=== PATIENT | male | born 1975 | race Caucasian/White ===

== ENCOUNTER 2017-01-27 12:22 | Emergency (ER) | payer OTHER ==
[2017-01-27] MEDS ORDERED: Ketorolac INJ* 30 MG/ML 1 ML VIAL IV ONE (13:04)
[2017-01-27] MEDS ORDERED: NS 0.9% 1000 ML* 1,000 ML IV ONE (13:04)
[2017-01-27 13:20] LABS: Hematocrit 40 % (42-52); Hemoglobin 13.3 g/dl (14.0-18.0); Mean Corpuscular HGB Conc 33 g/dl (31-36); Mean Corpuscular Hemoglobin 29 pg (27-31); Mean Corpuscular Volume 87 fL (80-94); Mean Platelet Volume 8 um3 (7.4-10.4); Red Blood Count 4.62 10^6/ul (4.0-5.4); Red Cell Distribution Width 14 % (10.5-15); White Blood Count 8.1 10^3/ul (3.5-10.8)
[2017-01-27 13:32] LABS: Albumin 3.9 g/dL (3.2-5.2); BUN/Creatinine Ratio 15.6 (8-20); C Reactive Protein 27.43 mg/L (< 5.00); Calcium 9.2 mg/dL (8.6-10.3); EGFR African American 79.3 (>60); EGFR Non-African American 61.6 (>60); Globulin 3.3 g/dL (2-4); Potassium 4.1 mmol/L (3.5-5.0); Total Bilirubin 0.6 mg/dL (0.2-1.0); Total Protein 7.2 g/dL (6.4-8.9)
--- NOTE | 2017-01-27 13:51 | RAD ---
Indication: Left testicular pain. Real-time sonography of the scrotum was performed. The right testicle measures 4.5 x 2.2 x 3.5 cm. No intratesticular masses are noted. Normal flow is noted in the right testis. No intratesticular masses are noted. The epididymis measures 12 x 8 mm. Small hydrocele is noted. The left testis measures 4.4 x 2.5 x 3.1 cm. Normal flow is noted in the left testis. Epididymis measures 11 x 12 mm. Small hydrocele is noted. No intratesticular masses are noted. Provocative scanning including upright standing with Valsalva demonstrates no evidence of inguinal hernia. IMPRESSION: Unremarkable scrotal ultrasound.
[2017-01-27] MEDS ORDERED: Iohexol 300* (CONTRAST) 10 ML SDV IV ONE (16:31)
--- NOTE | 2017-01-27 17:02 | RAD ---
CLINICAL HISTORY: Left lower quadrant and inguinal pain COMPARISON: None TECHNIQUE: Contrast enhanced CT examination of the abdomen and pelvis from the lung bases through the initial tuberosities. The patient received 144 mL Omnipaque 300 intravenously prior to imaging.The patient received oral contrast as well prior to imaging. FINDINGS: VISUALIZED LUNG BASES: The visualized lung bases are grossly clear. There is no pleural effusion. ABDOMEN AND PELVIS: The liver, spleen, pancreas and adrenal glands are grossly normal in appearance. The gallbladder is normal. At the lower pole of the right kidney (image 21) there is a 7 mm low-density focus that cannot be characterized further on this CT examination. Kidneys are normal in appearance without focal mass, calcification or signs of hydronephrosis. Neural contrast has progressed as far as the distal small bowel. In the left hemiabdomen (image 57 on the axial images and 46 of the coronal images) there is an apparent segment of small bowel exhibit bowel wall thickening up to 1 cm in thickness. This does not appear to cause obstruction as contrast has progressed beyond this point. The 5 mm normal-appearing appendix identified in the right lower quadrant (coronal image 62). There is no gross retroperitoneal or mesenteric lymphadenopathy. The pelvic viscera is normal in appearance. The abdominal aorta and iliac arteries are normal in course and diameter. Degenerative changes include multilevel loss of intervertebral disc height involving the lower thoracic and lumbar spine.There are no sinister bone lesions. IMPRESSION: 1. There is at least one segment of small bowel in the left hemiabdomen exhibiting wall thickening up to 9 mm in thickness. This can be seen with inflammatory or infectious etiologies. A neoplastic process is considered less likely but not totally excluded on imaging alone. 2. Additional chronic and degenerative changes noted in the body the report unlikely to be directly related to the patient's current presentation.
[2017-01-27 17:09] LABS: Urine Bilirubin Negative (Negative); Urine Glucose Negative (Negative); Urine Nitrite Negative (Negative)
--- NOTE | 2017-01-27 17:35 | ED ---
Gilda Nam Auryana, scribed for Norris Gomez MD on 01/27/17 at 1402 . Abdominal Pain/Male - HPI Summary HPI Summary: 41 year old male presents with abdominal pain starting last Friday (8 days ago) . He states suprapubic pain down to the base of the penis. He reports that the pain started after sexual intercourse with . He denies any fever, chills, nausea, vomiting, or any discharge. He denies any heavy lifting. No previous episodes - does report being seen at PCP who ordered a US ABD due to belief that it was a hernia - negative. PMHx is significant for knee surgeries but no PMHx relating to current complaint. FHx is significant for DM. SHx is significant for tobacco and alcohol, but no recreational drugs. - History of Current Complaint Chief Complaint: EDAbdPain Stated Complaint: GROIN PAIN Time Seen by Provider: 01/27/17 12:56 Hx Obtained From: Patient Onset/Duration: Gradual Onset, Lasting Days - 8, Still Present Timing: Constant Severity Initially: Mild Severity Currently: Moderate Pain Intensity: 7 Pain Scale Used: 0-10 Numeric Location: Suprapubic Radiates: Yes Radiates to: Other - to the base of the penis Associated Signs And Symptoms: Positive: Negative. Negative: Fever, Chest Pain , Back Pain, Urinary Symptoms, Nausea, Vomiting, Diarrhea, Penile Discharge Similar Episode/Dx As:: SEE HPI - Allergies/Home Medications Allergies/Adverse Reactions: Allergies Allergy/AdvReac Type Severity Reaction Status Date / Time No Known Allergies Allergy Verified 01/27/17 13:15 Home Medications: Home Medications NK [No Home Medications Reported] 01/27/17 [History Confirmed 01/27/17] PMH/Surg Hx/FS Hx/Imm Hx Musculoskeletal History: Reports: Other Musculoskeletal History - knee surgery Infectious Disease History: No Infectious Disease History: Denies: Traveled Outside the [place] in Last 30 Days - Family History Known Family History: Positive: Diabetes - Social History Occupation: Employed Full-time Lives: With Family Alcohol Use: Occasionally Hx Substance Use: No Substance Use Type: Reports: None Hx Tobacco Use: Yes Smoking Status (MU): Current Every Day Smoker Review of Systems Constitutional: Negative Negative: Fever, Chills Eyes: Negative ENT: Negative Cardiovascular: Negative Respiratory: Negative Positive: Abdominal Pain - suprapubic. Negative: Vomiting, Nausea Genitourinary: Negative Musculoskeletal: Negative Skin: Negative Neurological: Negative Psychological: Normal All Other Systems Reviewed And Are Negative: Yes Physical Exam - Summary Physical Exam Summary: VITAL SIGNS: Reviewed. GENERAL: Patient is a well developed and nourished male who is lying comfortable in the stretcher. Patient is not in any acute respiratory distress. HEAD AND FACE: Normocephalic and atraumatic. EYES: PERRLA, EOMI x 2, No injected conjunctiva. EARS: Hearing grossly intact. Ear canals and tympanic membranes are WNL. MOUTH: Oropharynx within normal limits. NECK: Supple, trachea is midline, no adenopathy, no JVD. CHEST: Symmetric, no tenderness at palpation LUNGS: Clear to auscultation bilaterally. No wheezing or crackles. CVS: RRR,, S1 and S2 present, no murmurs or gallops appreciated. ABDOMEN: Soft. No signs of distention. Positive bowel sounds. No rebound no guarding, and no masses palpated. No abdominal bruit or pulsations. Left inguinal tenderness - no lymphadenopathy-good pulses. EXTREMITIES: FROM in all major joints, no edema, no cyanosis or clubbing. NEURO: Alert and oriented x 3. No acute neurological deficits. Speech is normal. SKIN: Dry and warm : Circumcised penis, both testicles are descended. No masses are appreciated. Positive cremasteric reflex. Triage Information Reviewed: Yes Vital Signs On Initial Exam: Initial Vitals Temp Pulse Resp BP Pulse Ox 98.7 F 82 20 151/90 98 01/27/17 12:39 01/27/17 12:39 01/27/17 12:39 01/27/17 12:39 01/27/17 12:39 Vital Signs Reviewed: Yes Diagnostics - Vital Signs Vital Signs Temp Pulse Resp BP Pulse Ox 01/27/17 12:41 98.1 F 82 16 151/90 98 01/27/17 12:39 98.7 F 82 20 151/90 98 - Laboratory Lab Results: Lab Results 01/27/17 01/27/17 01/27/17 Range/Units 13:08 13:08 13:08 WBC 8.1 (3.5-10.8) 10^3/ul RBC 4.62 (4.0-5.4) 10^6/ul Hgb 13.3 L (14.0-18.0) g/dl Hct 40 L (42-52) % MCV 87 (80-94) fL MCH 29 (27-31) pg MCHC 33 (31-36) g/dl RDW 14 (10.5-15) % Plt Count 276 (150-450) 10^3/ul MPV 8 (7.4-10.4) um3 Neut % (Auto) 44.2 (38-83) % Lymph % (Auto) 43.1 (25-47) % Hawkins % (Auto) 10.6 H (1-9) % Eos % (Auto) 1.6 (0-6) % Baso % (Auto) 0.5 (0-2) % Absolute Neuts (auto) 3.6 (1.5-7.7) 10^3/ul Absolute Lymphs (auto) 3.5 (1.0-4.8) 10^3/ul Absolute Monos (auto) 0.9 H (0-0.8) 10^3/ul Absolute Eos (auto) 0.1 (0-0.6) 10^3/ul Absolute Basos (auto) 0 (0-0.2) 10^3/ul Absolute Nucleated RBC 0 10^3/ul Nucleated RBC % 0 Sodium 136 (133-145) mmol/L Potassium 4.1 (3.5-5.0) mmol/L Chloride 103 (101-111) mmol/L Carbon Dioxide 25 (22-32) mmol/L Anion Gap 8 (2-11) mmol/L BUN 20 (6-24) mg/dL Creatinine 1.28 H (0.67-1.17) mg/dL Est GFR ( Amer) 79.3 (>60) Est GFR (Non-Af Amer) 61.6 (>60) BUN/Creatinine Ratio 15.6 (8-20) Glucose 94 (70-100) mg/dL Lactic Acid 0.8 (0.5-2.0) mmol/L Calcium 9.2 (8.6-10.3) mg/dL Total Bilirubin 0.60 (0.2-1.0) mg/dL AST 16 (13-39) U/L ALT 14 (7-52) U/L Alkaline Phosphatase 73 (34-104) U/L C-Reactive Protein 27.43 H (< 5.00) mg/L Total Protein 7.2 (6.4-8.9) g/dL Albumin 3.9 (3.2-5.2) g/dL Globulin 3.3 (2-4) g/dL Albumin/Globulin Ratio 1.2 (1-3) Lipase 14 (11.0-82.0) U/L Urine Color Urine Appearance Urine pH (5-9) Ur Specific [place] (1.010-1.030) Urine Protein (Negative) Urine Ketones (Negative) Urine Blood (Negative) Urine Nitrate (Negative) Urine Bilirubin (Negative) Urine Urobilinogen (Negative) Ur Leukocyte Esterase (Negative) Urine Glucose (Negative) 01/27/17 Range/Units 17:00 WBC (3.5-10.8) 10^3/ul RBC (4.0-5.4) 10^6/ul Hgb (14.0-18.0) g/dl Hct (42-52) % MCV (80-94) fL MCH (27-31) pg MCHC (31-36) g/dl RDW (10.5-15) % Plt Count (150-450) 10^3/ul MPV (7.4-10.4) um3 Neut % (Auto) (38-83) % Lymph % (Auto) (25-47) % Hawkins % (Auto) (1-9) % Eos % (Auto) (0-6) % Baso % (Auto) (0-2) % Absolute Neuts (auto) (1.5-7.7) 10^3/ul Absolute Lymphs (auto) (1.0-4.8) 10^3/ul Absolute Monos (auto) (0-0.8) 10^3/ul Absolute Eos (auto) (0-0.6) 10^3/ul Absolute Basos (auto) (0-0.2) 10^3/ul Absolute Nucleated RBC 10^3/ul Nucleated RBC % Sodium (133-145) mmol/L Potassium (3.5-5.0) mmol/L Chloride (101-111) mmol/L Carbon Dioxide (22-32) mmol/L Anion Gap (2-11) mmol/L BUN (6-24) mg/dL Creatinine (0.67-1.17) mg/dL Est GFR ( Amer) (>60) Est GFR (Non-Af Amer) (>60) BUN/Creatinine Ratio (8-20) Glucose (70-100) mg/dL Lactic Acid (0.5-2.0) mmol/L Calcium (8.6-10.3) mg/dL Total Bilirubin (0.2-1.0) mg/dL AST (13-39) U/L ALT (7-52) U/L Alkaline Phosphatase (34-104) U/L C-Reactive Protein (< 5.00) mg/L Total Protein (6.4-8.9) g/dL Albumin (3.2-5.2) g/dL Globulin (2-4) g/dL Albumin/Globulin Ratio (1-3) Lipase (11.0-82.0) U/L Urine Color Yellow Urine Appearance Clear Urine pH 5.0 (5-9) Ur Specific [place] > 1.060 H (1.010-1.030) Urine Protein Negative (Negative) Urine Ketones Negative (Negative) Urine Blood Negative (Negative) Urine Nitrate Negative (Negative) Urine Bilirubin Negative (Negative) Urine Urobilinogen Negative (Negative) Ur Leukocyte Esterase Negative (Negative) Urine Glucose Negative (Negative) Result Diagrams: 01/27/17 13:08 01/27/17 13:08 Lab Statement: Any lab studies that have been ordered have been reviewed, and results considered in the medical decision making process. - CT ABD/PEL CT Interpretation: Positive (See Comments) - IMPRESSION: 1. There is at least one segment of small bowel in the left hemiabdomen exhibiting wall thickening up to 9 mm in thickness. This can be seen with inflammatory or infectious etiologies. A neoplastic process is considered less likely but not totally excluded on imaging alone. 2. Additional chronic and degenerative changes noted in the body the report unlikely to be directly related to the patient's current presentation. CT Interpretation Completed By: Radiologist - Additional Comments Diagnostic Additional Comments: TESTICULAR US : IMPRESSION: Unremarkable scrotal ultrasound. Re-Evaluation - Re-Evaluation First Eval Re-Evaluation Time: 14:44 - pain improved but still present - will medicate accordingly Second Eval Re-Evaluation Time: 17:27 - discussed results, plan for discharge, treatment and follow up Comment: patient agrees Abdominal Pain Fem Course/Dx - Course Course Of Treatment: 41 year old male presents with abdominal pain starting last Friday (8 days ago). He states suprapubic pain down to the base of the penis. He reports that the pain started after sexual intercourse with . He denies any fever, chills, nausea, vomiting, or any discharge. He denies any heavy lifting. No previous episodes - does report being seen at PCP who ordered a US ABD due to belief that it was a hernia - negative. PMHx is significant for knee surgeries but no PMHx relating to current complaint. FHx is significant for DM. SHx is significant for tobacco and alcohol, but no recreational drugs. Assessment/Plan: test results WNL except slight anemia, creatinine 1.28, CRP 27.4. UA is negative. Testicular is negative for acute pathology. I decided to do a CT ABD/PEL since patient had continued pain even after Toradol administration. CT ABD/PEL: IMPRESSION: 1. There is at least one segment of small bowel in the left hemiabdomen exhibiting wall thickening up to 9 mm in thickness. This can be seen with inflammatory or infectious etiologies. A neoplastic process is considered less likely but not totally excluded on imaging alone. 2. Additional chronic and degenerative changes noted in the body the report unlikely to be directly related to the patient's current presentation. In ED course, patient was given 1 dose of narco, and symptoms slightly improved. CT shows slight thickening in the small bowel therefore I will refer the patient to GI physician for follow up. At this point, the patient has no pain, nausea, vomiting, or diarrhea. Pain was only in the L inguinal area. There are no signs of hernia. Good femoral pulses, and full ROM of the hip, therefore patient will be discharged home with pain medication and follow up with GI. - Diagnoses Differential Diagnosis/HQI/PQRI: Constipation, Diverticulitis Provider Diagnoses: Inguinal pain Discharge - Discharge Plan Condition: Stable Disposition: HOME Patient Education Materials: Testicle Pain (ED), Groin Pain (ED), Acute Abdominal Pain (ED) Referrals: Sumanth Negrete MD [Medical Doctor] - 3 Days The documentation as recorded by the Gilda dennis Auryana accurately reflects the service I personally performed and the decisions made by me, Norris Gomez MD.
[2017-01-27 17:37] VITALS: BP 163/100
== END 2017-01-27 17:39 | disposition home or self-care (01) ==
LOC: EDSEX → ED 12:22
DX: R10.30 Lower abdominal pain, unspecified (principal); F17.200 Nicotine dependence, unspecified, uncomplicated
CPT/HCPCS: 36415; 74177; 76870; 80053; 81003; 83605; 83690; 85025; 86140; 87491; 87591; 96360; 96374; 99283; J1885; Q9967

== ENCOUNTER 2018-01-28 09:22 | Emergency (ER) | payer OTHER ==
[2018-01-28] MEDS ORDERED: NS 0.9% 1000 ML* 2,000 ML IV ONE (10:28)
[2018-01-28 10:41] LABS: ABS Basophils 0 10^3/ul (0-0.2); ABS Eosinophils 0.1 10^3/ul (0-0.6); ABS Lymphocytes 1.9 10^3/ul (1.0-4.8); ABS Monocytes 1.2 10^3/ul (0-0.8); ABS Neutrophils 6.6 10^3/ul (1.5-7.7); ABS Nucleated RBC 0 10^3/ul; Eosinophil % 0.9 % (0-6); Hematocrit 48 % (42-52); Hemoglobin 16.1 g/dl (14.0-18.0); Lymphocyte % 19.8 % (25-47); Mean Corpuscular HGB Conc 34 g/dl (31-36); Mean Corpuscular Hemoglobin 30 pg (27-31); Mean Corpuscular Volume 89 fL (80-94); Mean Platelet Volume 7.6 um3 (7.4-10.4); Nucleated Red Blood Cells % 0; Platelet Count 223 10^3/ul (150-450); Red Blood Count 5.36 10^6/ul (4.0-5.4); Red Cell Distribution Width 14 % (10.5-15); White Blood Count 9.8 10^3/ul (3.5-10.8)
[2018-01-28] MEDS ORDERED: Iohexol 300* (CONTRAST) 10 ML SDV IV ONE (11:15)
--- NOTE | 2018-01-28 11:52 | RAD ---
Indication: Left lower quadrant pain. Contrast: Administered 133.0 ml of OMNIPAQUE 300 mg/ml CT of the abdomen and pelvis was performed after oral and IV contrast administration. Coronal and sagittal reconstructed images were obtained. Comparison is made with previous exam dated January 27, 2017. The lung bases demonstrate no pleural fluid, nodules or masses heart is of normal size without evidence of pericardial effusion. Liver is normal in size. No focal lesions or intrahepatic ductal dilatation is noted. The gallbladder is partially contracted. No calcified gallstones are noted. The spleen is normal in size. The pancreas demonstrates no mass or pancreatic duct dilatation. The common duct is not dilated. No adrenal lesions are noted. The kidneys demonstrate symmetric nephrograms without focal lesions. There is likely a cortical cyst in the lower pole of the right kidney. Aorta and inferior vena cava are grossly unremarkable. No retroperitoneal or pelvic lymphadenopathy is noted. CT of the pelvis demonstrates no retroperitoneal or pelvic lymphadenopathy. There is mucosal thickening of the colon especially in the right colon, transverse colon. There may be some mucosal thickening in the descending colon. Findings are suspicious for colitis. No evidence of perforation is noted. No bowel obstruction is noted. Underlying diverticulosis of the sigmoid colon is noted. IMPRESSION: There is mucosal thickening of the right colon and transverse colon. Findings are suspicious for colitis. In addition underlying diverticulosis of the sigmoid colon is likely present. No definite evidence of diverticulitis is noted.
[2018-01-28] MEDS ORDERED: metroNIDAZOLE TAB* 250 MG PO ONE (12:07)
[2018-01-28] MEDS ORDERED: Ciprofloxacin TAB* 500 MG PO ONE (12:07)
[2018-01-28 12:17] LABS: Urine Appearance Cloudy; Urine Blood 1+ (Negative); Urine Color Amber; Urine Ketones Trace (Negative); Urine Protein 1+(30 mg/dL) (Negative); Urine Specific Gravity 1.027 (1.010-1.030); Urine Urobilinogen Negative (Negative)
[2018-01-28 13:00] VITALS: BP 130/72
--- NOTE | 2018-01-28 17:35 | ED ---
Roscoe Nam Gabriel, scribed for Rudolph Saleh MD on 01/28/18 at 1029 . GI/ HPI - HPI Summary HPI Summary: This patient is a 42 year old M BIBA to [facility] accompanied by his partner with a chief complaint of bright red in his stool for the past two days. The patient rates the pain 5/10 in severity. Patient reports periumbilicalar pain, diarrhea , chills, and intermittent fever. Patient denies vomiting. Pt denies recent travel, drinking untreated water, or eatting raw meat. Children that he lives with are also sick with a stomach bug - History of Current Complaint Chief Complaint: EDGIBleed Time Seen by Provider: 01/28/18 10:17 Stated Complaint: BLOOD STOOL/ABDOMINAL PAIN FOR 2 DAYS Hx Obtained From: Patient Onset/Duration: Started Days Ago - 2, Still Present Timing: Constant Severity: Moderate Current Severity: Moderate Pain Intensity: 5 Location of Pain: Other - periumbilicalar Associated Signs and Symptoms: Positive: Other: - periumbilicalar pain, diarrhea , chills, intermittent fever - Allergy/Home Medications Allergies/Adverse Reactions: Allergies Allergy/AdvReac Type Severity Reaction Status Date / Time No Known Allergies Allergy Verified 01/28/18 09:41 PMH/Surg Hx/FS Hx/Imm Hx Endocrine/Hematology History: Denies: Hx Diabetes Cardiovascular History: Denies: Hx Congestive Heart Failure, Hx Coronary Artery Disease, Hx Hypertension Respiratory History: Denies: Hx Chronic Bronchitis, Hx Chronic Obstructive Pulmonary Disease (COPD ), Hx Cystic Fibrosis History: Denies: Hx Renal Disease Musculoskeletal History: Reports: Other Musculoskeletal History - knee surgery Denies: Hx Congenital Bone Abnormalities Psychiatric History: Denies: Hx Panic Disorder Infectious Disease History: No Infectious Disease History: Denies: Traveled Outside the [place] in Last 30 Days - Family History Known Family History: Positive: Diabetes - Social History Occupation: Employed Full-time Lives: With Family Alcohol Use: Occasionally Alcohol Amount: 2 times a week Hx Substance Use: No Substance Use Type: Reports: None Hx Tobacco Use: Yes Smoking Status (MU): Current Every Day Smoker Review of Systems Positive: Fever, Chills Negative: Erythema Negative: Sore Throat Negative: Chest Pain Negative: Shortness Of Breath, Cough Gastrointestinal: Other - blood in stool Positive: Abdominal Pain. Negative: Vomiting, Diarrhea, Nausea Negative: dysuria, hematuria Negative: Myalgia, Edema Negative: Rash Neurological: Negative - dizziness All Other Systems Reviewed And Are Negative: Yes Physical Exam - Summary Physical Exam Summary: Constitutional: Well-developed, Well-nourished, Alert. (-) Distressed Skin: Warm, Dry HENT: Normocephalic; Atraumatic Eyes: Conjunctiva normal Neck: Musculoskeletal ROM normal neck. (-) JVD, (-) Stridor, (-) Tracheal deviation Cardio: Rhythm regular, rate normal, Heart sounds normal; Intact distal pulses; The pedal pulses are 2+ and symmetric. Radial pulses are 2+ and symmetric. (-) Murmur Pulmonary/Chest wall: Effort normal. (-) Respiratory distress, (-) Wheezes, (-) Rales Abd: Soft, (+) LLQ Tenderness, (-) Distension, (-) Guarding, (-) Rebound Musculoskeletal: (-) Edema Lymph: (-) Cervical adenopathy Neuro: Alert, Oriented x3 Psych: Mood and affect Normal Triage Information Reviewed: Yes Vital Signs On Initial Exam: Initial Vitals Temp Pulse Resp BP Pulse Ox 98.5 F 98 18 147/98 100 01/28/18 09:36 01/28/18 09:36 01/28/18 09:36 01/28/18 09:36 01/28/18 09:36 Vital Signs Reviewed: Yes Diagnostics - Vital Signs Vital Signs Temp Pulse Resp BP Pulse Ox 01/28/18 09:36 98.5 F 98 18 147/98 100 - Laboratory Result Diagrams: 01/28/18 10:33 01/28/18 10:33 Lab Statement: Any lab studies that have been ordered have been reviewed, and results considered in the medical decision making process. - CT CT ABD/Pelvis CT Interpretation Completed By: Radiologist - There is mucosal thickening of the right colon and transverse colon. Findings are suspicious for colitis. In addition underlying diverticulosis of the sigmoid colon is likely present. No definite evidence of diverticulitis is noted. ED physician has reviewed this radiology report. Re-Evaluation - Re-Evaluation First Eval Re-Evaluation Time: 12:13 Change: Unchanged Comment: I discussed CT results with the pt. GIGU Course/Dx - Course Assessment/Plan: This patient is a 42 year old M BIBA to [facility] accompanied by his partner with a chief complaint of bright red in his stool for the past two days. The patient rates the pain 5/10 in severity. Patient reports periumbilicalar pain, diarrhea, chills, and intermittent fever. Patient denies vomiting. Pt denies recent travel, drinking untreated water, or eatting raw meat. Children that he lives with are also sick with a stomach bug. CT ABD/ Pelvis reveals, per radiologist, There is mucosal thickening of the right colon and transverse colon. Findings. are suspicious for colitis. In addition underlying diverticulosis of the sigmoid colon is. likely present. No definite evidence of diverticulitis is noted. Test results with no significant abnormalities except for a CRP of 70. In the ED course the patient was given cipor, flagyl, and IV fluids. The patient understands he needs to follow up with his PCP and will do so. Patient will be discharged with prescription for cipro and flagyl and follow up from PCP and [facility]. Pt discharged awaiting stool culture. The patient is agreeable with this plan. - Diagnoses Provider Diagnoses: Colitis, Bloody diarrhea, Chronic renal insufficiency Discharge - Sign-Out/Discharge Documenting (check all that apply): Discharge/Admit/Transfer - Discharge Plan Condition: Stable Disposition: HOME Prescriptions: Ciprofloxacin TAB* [Cipro 500 MG TAB*] 500 mg PO BID #20 tab metroNIDAZOLE [Flagyl 500 MG TAB] 500 mg PO TID #30 tab Patient Education Materials: Colitis (ED) Referrals: [facility] [Outside] - 2 Days Additional Instructions: Please follow up with your primary care provider in [place] in 2-3 days. RETURN TO THE ER FOR ANY NEW OR WORSENING SYMPTOMS The documentation as recorded by the Roscoe dennis Gabriel accurately reflects the service I personally performed and the decisions made by me, Rudolph Saleh MD.
== END 2018-01-28 13:02 | disposition home or self-care (01) ==
LOC: ED 09:22
DX: K52.9 Noninfective gastroenteritis and colitis, unspecified (principal); K92.1 Melena; N18.9 Chronic kidney disease, unspecified; K57.30 Diverticulosis of large intestine without perforation or abscess without bleeding; F17.200 Nicotine dependence, unspecified, uncomplicated
CPT/HCPCS: 36415; 74177; 80053; 81003; 81015; 83605; 83690; 85025; 86140; 87040; 87086; 96360; 99282; A9270-GY; Q9967

== ENCOUNTER 2018-04-29 08:44 | Emergency (ER) | payer OTHER ==
--- NOTE | 2018-04-29 09:31 | RAD ---
INDICATION: Right fifth finger injury, deformity. TECHNIQUE: 3 views of the right fifth finger were obtained. FINDINGS: There is dislocation of the proximal interphalangeal joint. The middle phalanx is displaced posterior one shaft diameter and overriding the distal aspect of the proximal phalanx. No fracture is appreciated. There is diffuse soft tissue swelling present. IMPRESSION: DISLOCATION OF THE PROXIMAL INTERPHALANGEAL JOINT.
--- NOTE | 2018-04-29 09:34 | ED ---
Lower Extremity - HPI Summary HPI Summary: 42 year old Male presents with right pinky deformity. He states he got caught in something. He denies any previous injury to the area. No previous fracture. No numbness or tingling. Has deformity noted to the PIP. 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 Hasn't taking anything for his pain. - History of Current Complaint Chief Complaint: EDExtremityUpper Stated Complaint: RT HAND INJURY Time Seen by Provider: 04/29/18 08:53 Pain Intensity: 10 - Allergies/Home Medications Allergies/Adverse Reactions: Allergies Allergy/AdvReac Type Severity Reaction Status Date / Time No Known Allergies Allergy Verified 04/29/18 08:51 Home Medications: Home Medications NK [No Home Medications Reported] 04/29/18 [History Confirmed 04/29/18] PMH/Surg Hx/FS Hx/Imm Hx Endocrine/Hematology History: Denies: Hx Diabetes Cardiovascular History: Denies: Hx Congestive Heart Failure, Hx Coronary Artery Disease, Hx Hypertension Respiratory History: Denies: Hx Chronic Bronchitis, Hx Chronic Obstructive Pulmonary Disease (COPD ), Hx Cystic Fibrosis History: Denies: Hx Renal Disease Musculoskeletal History: Reports: Other Musculoskeletal History - knee surgery Denies: Hx Congenital Bone Abnormalities Psychiatric History: Denies: Hx Panic Disorder Infectious Disease History: No Infectious Disease History: Denies: Traveled Outside the [place] in Last 30 Days - Family History Known Family History: Positive: Diabetes - Social History Alcohol Use: Occasionally Alcohol Amount: 2 times a week Hx Substance Use: No Substance Use Type: Reports: None Hx Tobacco Use: Yes Smoking Status (MU): Light Every Day Tobacco Smoker Review of Systems Negative: Fever Negative: Chest Pain Negative: Shortness Of Breath Positive: Myalgia - right pinky deformity All Other Systems Reviewed And Are Negative: Yes Physical Exam Triage Information Reviewed: Yes Vital Signs On Initial Exam: Initial Vitals Temp Pulse Resp BP Pulse Ox 97.8 F 67 22 126/84 100 04/29/18 08:48 04/29/18 08:48 04/29/18 08:48 04/29/18 08:48 04/29/18 08:48 Vital Signs Reviewed: Yes Appearance: Positive: Well-Appearing Skin: Positive: Warm, Dry Head/Face: Positive: Normal Head/Face Inspection Eyes: Positive: Normal, Conjunctiva Clear ENT: Positive: Pharynx normal Respiratory/Lung Sounds: Positive: Clear to Auscultation, Breath Sounds Present Cardiovascular: Positive: Normal, RRR Musculoskeletal: Positive: Limited @ - PIP right pinky, Other - good pulses, capillary refill<2secs Neurological: Positive: Normal Psychiatric: Positive: Normal Procedures - Joint Reduction Right Joint Reduction Site: other Specify Other Joint Reduced: right pinky finger Conscious Sedation: No - digital block Reduction Attempts: 2 Pre-Procedure NV Exam: Yes Post Joint Reduction Film: no fracture seen Diagnostics - Vital Signs Vital Signs Temp Pulse Resp BP Pulse Ox 04/29/18 08:48 97.8 F 67 22 126/84 100 - Laboratory Lab Statement: Any lab studies that have been ordered have been reviewed, and results considered in the medical decision making process. - Radiology finger Xray Interpretation: Positive (See Comments) - IMPRESSION: DISLOCATION OF THE PROXIMAL INTERPHALANGEAL JOINT. Radiology Interpretation Completed By: Radiologist postreduction Xray Interpretation: No Acute Changes Radiology Interpretation Completed By: Radiologist Lower Extremity Course/Dx - Course Course Of Treatment: 42 year old Male presents with right pinky deformity. He states he got caught in something. He denies any previous injury to the area. No previous fracture. No numbness or tingling. Has deformity noted to the PIP. 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 Hasn't taking anything for his pain. on exam has deformity to right PIP pinky. neurovascular intact. xray shows dislocation. reduced joint after digital block and 2 attempts with med students help. placed in flinger splint. told to practice RICE. patient understand and agrees with plan. - Diagnoses Differential Diagnosis/HQI/PQRI: Positive: Dislocation, Fracture (Closed), Sprain, Strain Provider Diagnoses: Dislocation of right little finger Discharge - Sign-Out/Discharge Documenting (check all that apply): Patient Departure - Discharge Plan Condition: Good Disposition: HOME Patient Education Materials: Finger Dislocation (ED) [place]: [facility] [place] [facility] [place]] Houston Alexander MD [Medical Doctor] - Additional Instructions: Keep finger in splint for two weeks Follow up with ortho ice, elevate Take tyenlol or ibuprofen for pain every 6 hours Return to ED if develop any new or worsening symptoms - Billing Disposition and Condition Condition: GOOD Disposition: Home
[2018-04-29 10:07] VITALS: BP 142/93
--- NOTE | 2018-04-29 10:09 | RAD ---
Indication: Right fifth digit dislocation. 3 views of the right fifth digit demonstrates reduction of previously seen dislocation of the middle phalanx. IMPRESSION: Reduction of previously identified posterior dislocation of the middle phalanx.
== END 2018-04-29 10:06 | disposition home or self-care (01) ==
LOC: ED 08:44
DX: S63.256A Unspecified dislocation of right little finger, initial encounter (principal); X50.9XXA Other and unspecified overexertion or strenuous movements or postures, initial encounter; Y92.9 Unspecified place or not applicable; F17.210 Nicotine dependence, cigarettes, uncomplicated
CPT/HCPCS: 73140; 99282

== ENCOUNTER → 2019-03-08 10:54 | Emergency (ER) | payer MEDICAID ==
[2019-03-08 12:35] VITALS: BP 136/87
--- NOTE | 2019-03-08 12:40 | ED ---
Laceration/Wound HPI - HPI Summary HPI Summary: Patient is a 43-year-old male presenting to the ED with right distal tip of the index finger injury. He states he cut it on a piece of glass at work prior to arrival. Tetanus is up-to-date as of 2 years ago. Denies any pain currently. Bleeding is well controlled on arrival. Laceration is presently 0.7 cm in length and is superficial. - History of Current Complaint Stated Complaint: FINGER LACERATION PER PT Time Seen by Provider: 03/08/19 11:00 Hx Obtained From: Patient Mechanism of Injury: Sharp/Blunt Trauma Onset/Duration: Sudden Onset Aggravating: Movement Alleviating: Compression Timing: Constant Onset Severity: Mild Current Severity: Mild Pain Intensity: 1 Pain Scale Used: 0-10 Numeric Associated Signs & Symptoms: Negative - Allergy/Home Medications Allergies/Adverse Reactions: Allergies Allergy/AdvReac Type Severity Reaction Status Date / Time No Known Allergies Allergy Verified 03/08/19 11:40 PMH/Surg Hx/FS Hx/Imm Hx Previously Healthy: Yes Endocrine/Hematology History: Denies: Hx Diabetes Cardiovascular History: Denies: Hx Congestive Heart Failure, Hx Coronary Artery Disease, Hx Hypertension Respiratory History: Denies: Hx Chronic Bronchitis, Hx Chronic Obstructive Pulmonary Disease (COPD ), Hx Cystic Fibrosis History: Denies: Hx Renal Disease Musculoskeletal History: Reports: Other Musculoskeletal History - knee surgery Denies: Hx Congenital Bone Abnormalities Psychiatric History: Denies: Hx Panic Disorder - Immunization History Hx Pertussis Vaccination: No Immunizations Up to Date: Yes Infectious Disease History: No Infectious Disease History: Denies: Traveled Outside the [place] in Last 30 Days - Family History Known Family History: Positive: Diabetes - Social History Occupation: Employed Full-time Lives: With Family Alcohol Use: Weekly Alcohol Amount: 2 times a week Hx Substance Use: No Substance Use Type: Reports: Marijuana Hx Tobacco Use: Yes Smoking Status (MU): Light Every Day Tobacco Smoker Review of Systems Constitutional: Negative Eyes: Negative Negative: Palpitations, Chest Pain Negative: Shortness Of Breath, Cough Gastrointestinal: Negative Genitourinary: Negative Positive: no symptoms reported, see HPI - with Negative: Arthralgia, Myalgia Skin: Negative Positive: Other - laceration Neurological: Negative All Other Systems Reviewed And Are Negative: Yes Physical Exam Triage Information Reviewed: Yes Vital Signs On Initial Exam: Initial Vitals Temp Pulse Resp BP Pulse Ox 97.9 F 106 18 151/109 97 03/08/19 10:56 03/08/19 10:56 03/08/19 10:56 03/08/19 10:56 03/08/19 10:56 Vital Signs Reviewed: Yes Appearance: Positive: Well-Appearing, Well-Nourished Skin: Positive: Warm, Skin Color Reflects Adequate Perfusion Head/Face: Positive: Normal Head/Face Inspection Eyes: Positive: EOMI, Conjunctiva Clear Neck: Positive: Supple, No Lymphadenopathy Respiratory/Lung Sounds: Positive: Clear to Auscultation, Breath Sounds Present Cardiovascular: Positive: RRR, Pulses are Symmetrical in both Upper and Lower Extremities Musculoskeletal: Positive: Normal, Strength/ROM Intact Neurological: Positive: Sensory/Motor Intact, Alert, Oriented to Person Place, Time, Speech Normal Psychiatric: Positive: Affect/Mood Appropriate Procedures - Laceration/Wound Repair 1 Location: upper extremity Description: Linear Anesthesia: Local Length, Depth and Shape: .7cm length Betadine Prep?: No Irrigated w/ Saline (ccs): 40 Laceration/Wound Explored: clean Closure: Single Layer Suture Type: Prolene Number of Sutures: 3 Layer Closure?: No Sterile Dressing Applied?: Yes Diagnostics - Vital Signs Vital Signs Temp Pulse Resp BP Pulse Ox 03/08/19 12:34 97.9 F 93 19 136/87 99 03/08/19 10:56 97.9 F 106 18 151/109 97 - Laboratory Lab Statement: Any lab studies that have been ordered have been reviewed, and results considered in the medical decision making process. Laceration Repair Course/Dx - Course Course Of Treatment: Patient's evaluated for right distal tip index finger laceration. Laceration is approximately 0.7 cm in length and is superficial. Close wound thoroughly with normal saline. Time out obtained. 3 sutures using 4-0 Prolene placed using simple interrupted technique. Patient tolerated well. Occlusive gauze and tube gauze placed. Patient is discharged home with follow -up in 7 days for suture removal. Denies any concerns or complaints at this time. - Clinical Impression Provider Diagnoses: Laceration Discharge - Sign-Out/Discharge Documenting (check all that apply): Patient Departure Patient Received Moderate/Deep Sedation with Procedure: No - Discharge Plan Condition: Stable Disposition: HOME Patient Education Materials: Laceration (ED) Referrals: Nickie Collazo MD [Primary Care Provider] - Additional Instructions: Suture removal in 7 days Antibiotic ointment and bandage should be applied daily x 3 days, you may then leave open to air unless you are working or doing something else which would contaminate the area - Billing Disposition and Condition Condition: STABLE Disposition: Home
== END | disposition home or self-care (01) ==
LOC: ED 10:54
DX: S61.210A Laceration without foreign body of right index finger without damage to nail, initial encounter (principal); F17.210 Nicotine dependence, cigarettes, uncomplicated; W25.XXXA Contact with sharp glass, initial encounter; Y99.0 Civilian activity done for income or pay
CPT/HCPCS: 12001; 99282

== ENCOUNTER 2021-03-27 09:13 | Inpatient (IN) ==
[2021-03-27] MEDS ORDERED: NS 0.9% 1000 ml BAG 1,000 ML IV ONE (10:44)
[2021-03-27 11:06] LABS: ABS Eosinophils 0.1 10^3/ul (0-0.6); ABS Monocytes 0.8 10^3/ul (0-0.8); ABS Neutrophils 4.8 10^3/ul (1.5-7.7); Eosinophil % 1.2 %; Hematocrit 45 % (42-52); Hemoglobin 14.9 g/dL (14.0-18.0); Lymphocyte % 34.3 %; Mean Corpuscular HGB Conc 33 g/dL (31-36); Mean Corpuscular Hemoglobin 32 pg (27-31); Mean Corpuscular Volume 96 fL (80-94); Nucleated Red Blood Cells % 0.1; Platelet Count 264 10^3/uL (150-450); Red Blood Count 4.73 10^6 /uL (4.18-5.48); Red Cell Distribution Width 14 % (10-15); White Blood Count 8.7 10^3/uL (3.5-10.8)
[2021-03-27 11:32] LABS: Troponin I 0.01 ng/mL (<0.03)
[2021-03-27 11:36] LABS: Albumin 4.1 g/dL (3.2-5.2); Calcium 8.9 mg/dL (8.6-10.3); Magnesium 1.9 mg/dL (1.9-2.7); Potassium 4.3 mmol/L (3.5-5.0); Total Bilirubin 0.6 mg/dL (0.2-1.0)
[2021-03-27 11:38] LABS: Activated Partial Thrombo Time 28.9 seconds (26.0-38.0); INR 1.11 (0.86-1.15)
[2021-03-27 11:42] LABS: Albumin/Globulin Ratio 1.6 (1-3); EGFR African American 78.9 (>60); EGFR Non-African American 65.2 (>60); Globulin 2.6 g/dL (2-4); Total Protein 6.7 g/dL (6.4-8.9)
[2021-03-27] MEDS ORDERED: Diltiazem IV push/loading dose 5 MG/ML 5 ML vial (25 mg) IV SLOW PU ONE ×4 (11:51→14:51)
[2021-03-27 12:37] LABS: Rapid COVID-19 Molecular Undetected (Undetected)
[2021-03-27 12:38] LABS: Influenza A Molecular Negative (Negative); Influenza B Molecular Negative (Negative)
[2021-03-27] MEDS ORDERED: Diltiazem (ADVAN VIAL) 100 MG/100 ML ADDV.BAG IV SCH (14:00)
[2021-03-27] MEDS ORDERED: Iodixanol (CONTRAST) 320 MG/ML 100 ML SDV IV ONE (15:32)
[2021-03-27] MEDS ORDERED: Magnesium Sulfate 2 gm BAG 2 GM/50 ML BAG IVPB ONE (15:41)
[2021-03-27] MEDS ORDERED: Metoprolol Tartrate 5 mg VIAL 5 ml VIAL (1 mg/ml) IV ONE (15:42)
[2021-03-27] MEDS: Enoxaparin 100 MG/ML SYR SUBCUT SCH (16:37)
[2021-03-27] MEDS: Diltiazem (ADVAN VIAL) 100 MG/100 ML ADDV.BAG IV SCH (21:47)
[2021-03-28] MEDS: Enoxaparin 100 MG/ML SYR SUBCUT SCH ×3 (03:37→19:39)
[2021-03-28] MEDS: Diltiazem (ADVAN VIAL) 100 MG/100 ML ADDV.BAG IV SCH ×2 (04:49→10:42)
[2021-03-28 05:29] LABS: ABS Lymphocytes 2.2 10^3/ul (1.0-4.8); ABS Monocytes 0.9 10^3/ul (0-0.8); ABS Neutrophils 7.3 10^3/ul (1.5-7.7); Eosinophil % 0.2 %; Hematocrit 41 % (42-52); Hemoglobin 14.1 g/dL (14.0-18.0); Lymphocyte % 21.1 %; Mean Corpuscular HGB Conc 34 g/dL (31-36); Mean Corpuscular Hemoglobin 32 pg (27-31); Mean Corpuscular Volume 94 fL (80-94); Mean Platelet Volume 8.4 fL (7.4-10.4); Nucleated Red Blood Cells % 0.1; Platelet Count 248 10^3/uL (150-450); Red Blood Count 4.38 10^6 /uL (4.18-5.48); Red Cell Distribution Width 14 % (10-15); White Blood Count 10.5 10^3/uL (3.5-10.8)
[2021-03-28 05:45] LABS: Calcium 8.7 mg/dL (8.6-10.3); EGFR African American 85.4 (>60); EGFR Non-African American 70.6 (>60); HDL Cholesterol 36.7 mg/dL
[2021-03-28 06:24] LABS: HIV 4th Generation Nonreactive (Nonreactive)
[2021-03-28 08:06] LABS: Magnesium 1.9 mg/dL (1.9-2.7)
[2021-03-28 10:32] LABS: TSH Ultra Thyroid Stim Horm 2.8 mcIU/mL (0.34-5.60)
[2021-03-28 10:35] LABS: Free T4 1.11 ng/dL (0.61-1.12)
[2021-03-28 11:02] LABS: Hepatitis B Surface Antigen Nonreactive (Nonreactive)
[2021-03-28 11:20] LABS: Hepatitis C Antibody Negative (Negative)
[2021-03-28] MEDS ORDERED: Flumazenil 0.5 mg/5 ml 0.1 MG/ML 5 ml VIAL ONE (13:48)
[2021-03-28] MEDS ORDERED: Midazolam 5 mg/5 ml VIAL 1 mg/ml 5 ml VIAL (5 mg) ONE ×2 (13:48→14:33)
[2021-03-28] MEDS ORDERED: Naloxone 0.4 mg VIAL 0.4 mg/ml 1 ml VIAL ONE (13:48)
[2021-03-28] MEDS ORDERED: fentaNYL 100 mcg/2 ml 50 MCG/ML VIAL ONE (13:48)
[2021-03-28] MEDS ORDERED: Metoprolol Tartrate 5 mg VIAL 5 ml VIAL (1 mg/ml) ONE (14:39)
[2021-03-28] MEDS ORDERED: Magnesium Sulfate 2 gm BAG 2 GM/50 ML BAG IVPB ONE (18:01)
[2021-03-29 06:24] LABS: Calcium 8.6 mg/dL (8.6-10.3); EGFR Non-African American 75.2 (>60); Magnesium 1.9 mg/dL (1.9-2.7); Potassium 3.9 mmol/L (3.5-5.0)
[2021-03-29] MEDS: Enoxaparin 100 MG/ML SYR SUBCUT SCH (08:16)
[2021-03-29] MEDS ORDERED: Magnesium Sulfate 2 gm BAG 2 GM/50 ML BAG IVPB ONE (11:44)
[2021-03-29] MEDS ORDERED: Midazolam 5 mg/5 ml VIAL 1 mg/ml 5 ml VIAL (5 mg) ONE (13:13)
[2021-03-29] MEDS ORDERED: Lidocaine 2% PF 5 ML VIAL ONE (13:14)
[2021-03-29] MEDS ORDERED: Phenylephrine IV 10 MG/ML 1 ml VIAL ONE (13:15)
[2021-03-29] MEDS ORDERED: Ondansetron 4 mg VIAL 2 MG/ML 2 ml VIAL IV PRN (14:28)
[2021-03-29] MEDS ORDERED: Naloxone 0.4 mg VIAL 0.4 mg/ml 1 ml VIAL IV PRN (14:28)
[2021-03-29 16:24] LABS: Hepatitis Be Antigen Negative (Negative)
[2021-03-29 16:42] LABS: Hepatitis Be Antibody Negative (Negative)
[2021-03-30 07:30] LABS: Calcium 8.8 mg/dL (8.6-10.3); EGFR Non-African American 67.8 (>60); Magnesium 1.9 mg/dL (1.9-2.7); Potassium 4.3 mmol/L (3.5-5.0)
[2021-03-30] MEDS ORDERED: NS 0.9% 1000 ml BAG 1,000 ML IV SCH ×2 (08:45→11:30)
[2021-03-30] MEDS ORDERED: Enoxaparin 40 MG/0.4 ML SYR SUBCUT SCH (09:00)
[2021-03-30] MEDS ORDERED: Midazolam 5 mg/5 ml VIAL 1 mg/ml 5 ml VIAL (5 mg) ONE (09:46)
[2021-03-30] MEDS ORDERED: Heparin 1,000 UNIT/ML 10 ml (10,000 UNITS) CATHLAB/DIALYSIS ONE (09:46)
[2021-03-30] MEDS ORDERED: VERAPAMIL 2.5 MG/ML 2 ML VIAL ** 5 mg/2 ml ONE (09:46)
[2021-03-30] MEDS ORDERED: Lidocaine 1% VIAL 10 MG/ML VIAL ONE (09:47)
[2021-03-30] MEDS ORDERED: Heparin 2 UNITS/ML 1000 mls 2,000 ML IV ONE (09:47)
[2021-03-30] MEDS ORDERED: Iohexol 350 (CONTRAST) 200 ML MDV IV ONE (09:47)
[2021-03-30] MEDS ORDERED: nitroGLYCERIN DRIP 0 MCG/0 ML BTL ONE (09:47)
[2021-03-30] MEDS ORDERED: diPHENhydraMINE IV 50 MG/ML 1 ml VIAL (BENADRYL) ONE (10:03)
[2021-03-30] MEDS ORDERED: COVID-19 VACCINE, AD26(JANSSEN)/PF 0.5 ML IM ONE (14:00)
[2021-03-30] MEDS: Enoxaparin 100 MG/ML SYR SUBCUT SCH (18:32)
[2021-03-31] MEDS: Enoxaparin 100 MG/ML SYR SUBCUT SCH (05:41)
[2021-03-31 09:50] VITALS: BP 112/82
== END 2021-03-31 11:30 | disposition home or self-care (01) | DRG 287 ==
LOC: ED 09:13 → MEDTELE 17:30
PROVIDERS: ADMIT Internal Medicine; ATTEND Internal Medicine
PROC: O.CATEE (2021-03-29 13:15)